=== PATIENT | male | born 1960 | race Two or more races ===

== ENCOUNTER 2025-07-11 11:55 | Day surgery (SDC) | payer MEDICAID, SELFPAY ==
[2025-07-10 06:56] VITALS: BMI 41.1
--- NOTE | 2025-07-10 07:00 | EKG_ITS ---
[facility] Test Date: 2025-07-10 Pat Name: KIERSTEN SOTO Department: Room: - Gender: Male [employer] Person: DEWEY : 1961-02-12 Requested By: Josias Mackenzie Order Number: [id number] Reading MD: Josias Mackenzie Measurements Intervals Graham Rate: 73 P: 20 DE: 196 QRS: -5 QRSD: 94 T: 12 QT: 384 QTc: 425 Interpretive Statements SINUS RHYTHM LOW QRS VOLTAGE IN PRECORDIAL LEADS [QRS DEFLECTION < 1.0 mV IN CHEST LEADS] POSSIBLE ANTERIOR MYOCARDIAL INFARCTION , OF INDETERMINATE AGE [30 ms Q WAVE IN V3/V4, OR R < 0.2 mV IN V4] INFERIOR MYOCARDIAL INFARCTION , PROBABLY OLD [40+ ms Q WAVE AND/OR ST/T ABNORMALITY IN II/aVF] No previous ECG available for comparison /[id number]/[email or web address]/[id number]
[2025-07-10 07:35] LABS: Collection Type, Urine Clean Catch
[2025-07-10 08:59] LABS: Basophils # (Auto) 0.0 Thou/mm3 (0.0-0.2); Basophils % (Auto) 1 % (0-2.5); Eosinophils # (Auto) 0.1 Thou/mm3 (0.0-0.5); Eosinophils % (Auto) 2 % (0-10); Hematocrit 48.7 % (41.0-53.0); Hemoglobin 16.1 g/dL (13.5-16.0); Immature Granulocytes Auto 0.03 Thou/mm3 (0.00-0.00); Lymphocytes # (Auto) 1.8 Thou/mm3 (1.0-4.8); Lymphocytes % (Auto) 23 % (10-50); Mean Corpuscular HGB Conc 33.1 g/dl (31.0-37.0); Mean Corpuscular Hemoglobin 28.4 pg (25.0-35.0); Mean Corpuscular Volume 86 fL (80-100); Monocytes # (Auto) 0.7 Thou/mm3 (0.0-0.8); Monocytes % (Auto) 9 % (0-12); Neutrophils # (Auto) 5.2 Thou/mm3 (1.8-7.7); Neutrophils % (Auto) 66 % (37-80); Nucleated Red Blood Cell # 0.00 Thou/mm3 (0.00-0.00); Nucleated Red Blood Cell % 0 /100 WBC (0); Platelet Count 261 Thou/mm3 (140-440); RDW Standard Deviation 45.1 fL (35.1-43.9); Red Blood Count 5.67 Miln/mm3 (4.50-5.90); White Blood Count 7.9 Thou/mm3 (3.8-10.6)
[2025-07-10 09:02] LABS: Bilirubin,Urine Negative (Negative); Blood,Urine Negative (Negative); Clarity,Urine Clear (Clear/Hazy); Color,Urine Lt-Yellow (Lt Yel-Yel); Glucose, Urine 4+ (Negative); Ketones,Urine Negative (Negative); Leukocyte Esterase,Urine Negative (Negative); Nitrite,Urine Negative (Negative); PH,Urine 5.5 (5.0-7.0); Protein,Urine Negative (Neg - Trace); RBC,Urine 2 /hpf (0-3); Specific Gravity,Urine 1.031 (1.001-1.035); Squamous Epithelial Cell,Urine 1 /hpf (0-5); Urobilinogen,Urine Negative mg/dL (0.0-1.0); WBC,Urine 5 /hpf (0-5)
[2025-07-10 09:13] LABS: Alanine Aminotransferase 38 U/L (10-49); Albumin, Serum 4.8 gm/dL (3.4-4.8); Albumin/Globulin Ratio 1.7 (1.2-2.2); Alkaline Phosphatase 72 U/L (46-116); Anion Gap 11 (7-16); Aspartate Amino Transferase 26 U/L (0-34); BUN/Creatinine Ratio 10 Ratio (12-20); Bilirubin,Total 0.6 mg/dL (0.3-1.2); Blood Urea Nitrogen 10 mg/dL (9-23); Calcium 9.3 mg/dL (8.3-10.6); Calcium (Corrected) 9.3 mg/dL (8.5-10.1); Carbon Dioxide 30.7 mMol/L (20.0-31.0); Chloride 97 mMol/L (98-107); Creatinine (Component) 1.0 mg/dL (0.6-1.3); Estimated Creatinine Clearance 103.8 mL/min (>60); Globulin 2.9 gm/dL (2.3-3.5); Glucose 133 mg/dL (74-106); Osmolality,Calculated 278 (275-295); Potassium 4.2 mMol/L (3.4-5.1); Sodium 139 mMol/L (136-145); Total Protein 7.7 gm/dL (5.7-8.2); eGFR > 60 See Note
--- NOTE | 2025-07-10 13:58 | ESHP_ITS ---
RE: KIERSTEN SOTO : 02/12/1961 DATE OF ADMISSION: 07/10/2025 HISTORY OF PRESENT ILLNESS: Patient is British speaking male with nocturia 6-7 times with fair urinary stream. No burning or no blood in the urine. PAST SURGICAL HISTORY: Previous surgery is none. He has 4 children. PAST MEDICAL HISTORY: He has a history of diabetes mellitus and history of hypertension. ALLERGIES: NONE KNOWN. HOME MEDICATIONS: He is on; 1. Janumet. 2. Jardiance. 3. Tamsulosin once a day. 4. Zestoretic. 5. Ozempic. LABORATORY DATA: His PSA is 8.1. Percentage free PSA is 27. PHYSICAL EXAMINATION: His weight is 283 pounds. HEENT: Normal. Neck: Supple. Lungs: Clear. Cardiovascular: Heart sounds are normal. Abdomen: Obese. No organomegaly, no guarding, no rigidity. Extremities: Normal. : Phallus is normal. Testes are down in scrotum. Rectal examination reveals moderately enlarged smooth prostate. IMPRESSION: 1. Elevated PSA. 2. Prostatism. 3. Prostatic obstruction. 4. Diabetes mellitus. 5. Hypertension. 6. Morbid obesity. 7. PSA is 8.1. PLAN: Plan is cystoscopy, transrectal prostatic ultrasound with ultrasound- guided prostatic needle biopsy. Planned procedure, risks and complications have been discussed with the patient. Patient has understood them and agreed to proceed. DT: 13:49:39 TT: 13:56:00 Ref: [id number] - TID: [id number]
--- NOTE | 2025-07-10 15:09 | SUR.PREOP ---
Pt notified to come in at 1200 tomorrow for surgery.
[2025-07-11 12:33] VITALS: BP 150/89; PULSE 69; RESP 12; TEMP 36.6; O2SAT 95; BMI 40.6
[2025-07-11] MEDS: RINGERS LACTATED 1000 ML 1,000 ML 20 ML IV (12:46)
--- NOTE | 2025-07-11 13:00 | XR_ITS ---
EXAMINATION: Transrectal prostate sonography Date and time: July 11, 2025, 1325 hours INDICATIONS: Transrectal prostate sonography for prostate biopsies today TECHNIQUE AND FINDINGS: Grayscale sonographic images prostate Prostate volume 67.44 cc IMPRESSION: Transrectal prostate sonographic images for prostate biopsies today
[2025-07-11 13:50] VITALS: BP 153/82; PULSE 77; RESP 12; TEMP 36.4; O2SAT 98
--- NOTE | 2025-07-11 13:50 | SUR.PHASEII ---
1350: Pt. AAOx4, vitals stable, breathing unlabored, no complaint of pain or nausea, no dressing in place, no active bleed noted, report received from Kt GUARDADO and Mikael BACK.
[2025-07-11 13:55] VITALS: BP 150/95; PULSE 70; RESP 20; TEMP 36.5; O2SAT 98
[2025-07-11 14:00] VITALS: BP 147/100; PULSE 75; RESP 18; TEMP 36.5; O2SAT 99
[2025-07-11 14:05] VITALS: BP 148/99; PULSE 71; RESP 16; TEMP 36.4; O2SAT 95
[2025-07-11 14:20] VITALS: BP 148/95; PULSE 68; RESP 13; TEMP 36.6; O2SAT 95
--- NOTE | 2025-07-11 14:30 | SUR.PHASEII ---
1430: Pt. AAOx4, vitals stable, breathing unlabored, no complaint of pain or nausea, no dressing in place, pt. able to void hematuria, no visible clots noted, pt. tolerated sips of water well, pt. ambulated to wheelchair with steady gait and no assist, no complications. Gave discharge instructions to the pt. and his ride using a delivery room supervisor, both verbalized understanding and had no further questions. Pt. left with all personal belongings.
--- NOTE | 2025-07-11 16:27 | ESOP_ITS ---
RE: KIERSTEN SOTO : 1960 DATE OF OPERATION: 07/11/2025 PREOPERATIVE DIAGNOSES: Prostatism, prostatic obstruction, elevated PSA of 8.1. POSTOPERATIVE DIAGNOSES: Prostatism, prostatic obstruction, elevated PSA of 8.1. PROCEDURES PERFORMED: Cystoscopy, urethral dilatation, transrectal prostatic ultrasound with ultrasound guided prostatic needle biopsy. ANESTHESIA: Monitored anesthesia by Mr. Kt CRNA. INDICATION: The patient is 65-year-old gentleman with a history of nocturia 6-7 times, elevated PSA of 8.1. Rectally he has a moderately enlarged smooth prostate. He is now scheduled to have cystoscopy and transrectal prostatic ultrasound with ultrasound guided prostatic needle biopsy. Planned procedure, risks, and complications have been discussed with the patient, the patient understood them and agreed to proceed. DESCRIPTION OF PROCEDURE: After the patient was brought to the operating table under adequate monitored anesthesia and dorsal lithotomy position, parts were prepped and draped in the usual fashion. This procedure was done under monitored anesthesia. Cystoscope was introduced into the penis. Urethra and meatus is open. Prostatic urethra was visualized which revealed bilobed moderately enlarged prostate. Scope was introduced into the bladder. Residual urine 2 ounces, yellow and clear. There are no intravesical stones or tumors. Ureteral orifices are found to be normal in position and appearance. Scope was withdrawn. Urethra was dilated. The patient was then turned in left lateral position. Transrectal prostatic ultrasound was then carried out. Biopsies were obtained from both lobes using ultrasound guidance. Prostatic volume was measured at 62.4 cubic cm. The patient tolerated the entire procedure well and left the room in good condition. DT: 13:54:04 TT: 16:25:00 Ref: [id number] - TID: [id number]
== END 2025-07-11 14:30 | disposition home or self-care (01) ==
PROVIDERS: Anesthesiology; PCP Family Medicine; Referring Provider Surgery; Visit Provider Surgery
PROC: 0TJB8ZZ Inspection of Bladder, Via Natural or Artificial Opening Endoscopic (ICD-10-PCS; CPT 52000; principal; 2025-07-11 13:45)
PROC: (CPT 55700; 2025-07-11 13:45)
DX: C61 Malignant neoplasm of prostate (principal); Z01.810 Encounter for preprocedural cardiovascular examination; E11.9 Type 2 diabetes mellitus without complications; E66.01 Morbid (severe) obesity due to excess calories; I10 Essential (primary) hypertension; Z68.41 Body mass index [BMI] 40.0-44.9, adult
CPT/HCPCS: 55700; 52281; 36415; 76942; 80053; 81001; 85025; 87086; 93005; A4217; A4649; J0694; J2250; J2704; J3010; J7120

== ENCOUNTER → 2025-09-03 | Outpatient (CLI) | payer MEDICAID, SELFPAY ==
--- NOTE | 2025-09-03 11:30 | XR_ITS ---
Examination: CT pelvis without intravenous contrast. 2-D sagittal and coronal reconstructions. Date and time of exam: September 03, 2025, 1035 hours INDICATIONS: Diagnosis malignant neoplasm prostate, difficulty urinating 1 month CTDI: vol (mGy) : 15.6 DLP: (mGycm) : 613 Technique: Multiple 3 mm axial sections of the pelvis have been obtained with the 64 slice high resolution scanner. 2-D sagittal and coronal reconstructions. Low dose protocols were performed. One or more of the following dose reduction techniques were used; automated exposure control, adjustment of the mA and/or KV according to patient size, use of iterative reconstruction technique. Findings: 10 mm left common iliac lymph node 6 mm right common iliac lymph node 8 mm left common iliac lymph node 16 mm left external iliac lymph node 14 mm 12 mm right external iliac lymph nodes Transverse prostate dimension 5.8 cm 6 mm sclerotic focus posterior right iliac bone image 71 IMPRESSION: Significant pelvic lymphadenopathy 6 mm sclerotic focus posterior right iliac bone Consider PET CT scan follow-up for staging
== END | disposition home or self-care (01) ==
LOC: CCTX 10:16
PROVIDERS: Referring Provider Surgery; Visit Provider Surgery
DX: R59.0 Localized enlarged lymph nodes (principal); M89.8X8 Other specified disorders of bone, other site; C61 Malignant neoplasm of prostate
CPT/HCPCS: 72192